=== PATIENT | female | born 1960 | race Hispanic/Latino ===

== ENCOUNTER 2018-04-08 18:04 | Inpatient (IN) | payer OTHER ==
[2018-04-08 19:23] LABS: Basophils % (Auto) 0.7 % (0.0-1.8); Eosinophils # (Auto) 0.1 K/mm3 (0.0-0.4); Eosinophils % (Auto) 1.2 % (0.0-4.3); Hematocrit 40.7 % (30.3-42.9); Lymphocytes # (Auto) 2.5 K/mm3 (1.2-5.4); Lymphocytes % (Auto) 41.7 % (13.4-35.0); Mean Corpuscular HGB Conc 34 % (30-34); Mean Corpuscular Hemoglobin 29 pg (28-32); Mean Corpuscular Volume 85 fl (79-97); Monocytes # (Auto) 0.5 K/mm3 (0.0-0.8); Monocytes % (Auto) 7.5 % (0.0-7.3); Platelet Count 397 K/mm3 (140-440); Red Blood Count 4.77 M/mm3 (3.65-5.03); Red Cell Distribution Width 14.9 % (13.2-15.2)
--- NOTE | 2018-04-08 19:35 | Emergency Department Report ---
HPI - General Chief Complaint: Altered Mental Status Time Seen by Provider: 04/08/18 19:06 - HPI HPI: Room 25 The patient is a 57-year-old female presenting with a chief complaint of altered mental status and chest pain. Family states the patient has been "in and out" of consciousness this afternoon not behaving like her normal self. Family states the patient started on a new medication for acid reflux 2017. Within the past week the patient has experienced numbness of her lips and fingers and feet of both sides. The patient contacted her physician wrote her for that acid reflux medication and his shortness Benadryl and the patient states she took 225 mg Benadryl's last night at approximately 21:00. Today with family since talked to the patient over the phone she is very difficult to understand. They called a second time patient never hung up. Family was sick to go check on the patient and they found the patient at that time "in and out" of consciousness. Patient complains of chest pain stating she feels as though she hasn't elephant sitting on her chest and it's been that way since January 2018. The patient admits to shortness of breath and some diaphoresis with her chest pain. The patient gets her chest pain score of 40/10. The patient states her last stress test occur "a long time ago" but she has never had a cardiac catheterization. Patient denies suicidal ideation when asked in confidence Location: Mental State, chest Duration: [See above] Quality: Altered, heaviness Severity: 40/10 Modifying factors: [see above] Context: [see above] Mode of transportation: [not driving] ED Past Medical Hx - Past Medical History Previous Medical History?: Yes Hx Hypertension: Yes Hx GERD: Yes Hx Asthma: Yes - Surgical History Past Surgical History?: Yes Hx Cholecystectomy: Yes Additional Surgical History: right knee surgery x 2, C section x 2, - Family History Family history: no significant - Social History Smoking Status: Former Smoker (none times over 10 years) Substance Use Type: None (denies illicit drug use) ED Review of Systems ROS: Stated complaint: AMS Other details as noted in HPI Constitutional: diaphoresis Respiratory: shortness of breath Cardiovascular: chest pain Gastrointestinal: denies: nausea, vomiting Neurological: other (altered mental status) Psychiatric: denies: suicidal thoughts Physical Exam - Physical Exam Vital Signs: Vital Signs 04/08/18 04/08/18 04/08/18 18:16 18:28 18:30 Temperature 98.6 F Pulse Rate 92 H 91 H Respiratory 16 16 Rate Blood Pressure 139/89 139/83 139/83 O2 Sat by Pulse 99 97 Oximetry 04/08/18 04/08/18 04/08/18 18:45 18:47 19:00 Temperature Pulse Rate 87 89 89 Respiratory 22 11 L Rate Blood Pressure 125/70 137/89 O2 Sat by Pulse 99 97 Oximetry Physical Exam: GENERAL: The patient is well-developed well-nourished female lying on stretcher not appearing to be in acute distress. [] HEENT: Normocephalic. Atraumatic. Extraocular motions are intact. Patient has moist mucous membranes. NECK: Supple. Trachea midline CHEST/LUNGS: Clear to auscultation. There is no respiratory distress noted. HEART/CARDIOVASCULAR: Regular. There is no tachycardia. There is no gallop rub or murmur. ABDOMEN: Abdomen is soft, nontender. Patient has normal bowel sounds. There is no abdominal distention. SKIN: There is no rash. There is no edema. There is no diaphoresis. NEURO: The patient is awake, alert, and oriented. The patient is cooperative. The patient has no focal neurologic deficits. The patient has normal speech. Cranial nerves II through XII grossly intact. Patient would not cooperate with exam to perform pronator drift. MUSCULOSKELETAL: There is no evidence of acute injury. ED Course Vital Signs 04/08/18 04/08/18 04/08/18 18:16 18:28 18:30 Temperature 98.6 F Pulse Rate 92 H 91 H Respiratory 16 16 Rate Blood Pressure 139/89 139/83 139/83 O2 Sat by Pulse 99 97 Oximetry 04/08/18 04/08/18 04/08/18 18:45 18:47 19:00 Temperature Pulse Rate 87 89 89 Respiratory 22 11 L Rate Blood Pressure 125/70 137/89 O2 Sat by Pulse 99 97 Oximetry ED Medical Decision Making - Lab Data Result diagrams: 04/08/18 19:03 04/08/18 19:03 Laboratory Tests 04/08/18 04/08/18 04/08/18 19:03 19:03 19:03 WBC 6.1 RBC 4.77 Hgb 14.0 Hct 40.7 MCV 85 MCH 29 MCHC 34 RDW 14.9 Plt Count 397 Lymph % (Auto) 41.7 H [place] % (Auto) 7.5 H Eos % (Auto) 1.2 Baso % (Auto) 0.7 Lymph # 2.5 [place] # 0.5 Eos # 0.1 Baso # 0.0 Seg Neutrophils % 48.9 Seg Neutrophils # 3.0 D-Dimer Sodium 132 L Potassium 4.1 Chloride 97.7 L Carbon Dioxide 24 Anion Gap 14 BUN 8 Creatinine 0.8 Estimated GFR > 60 BUN/Creatinine Ratio 10 Glucose 116 H POC Glucose Calcium 9.7 Total Bilirubin 0.40 AST 29 ALT 29 Alkaline Phosphatase 144 H Total Creatine Kinase CK-MB (CK-2) CK-MB (CK-2) Rel Index Troponin T Total Protein 7.8 Albumin 4.6 Albumin/Globulin Ratio 1.4 Salicylates Acetaminophen Plasma/Serum Alcohol < 0.01 04/08/18 04/08/18 04/08/18 19:06 19:09 19:09 WBC RBC Hgb Hct MCV MCH MCHC RDW Plt Count Lymph % (Auto) [place] % (Auto) Eos % (Auto) Baso % (Auto) Lymph # [place] # Eos # Baso # Seg Neutrophils % Seg Neutrophils # D-Dimer Sodium Potassium Chloride Carbon Dioxide Anion Gap BUN Creatinine Estimated GFR BUN/Creatinine Ratio Glucose POC Glucose 106 H Calcium Total Bilirubin AST ALT Alkaline Phosphatase Total Creatine Kinase CK-MB (CK-2) CK-MB (CK-2) Rel Index Troponin T Total Protein Albumin Albumin/Globulin Ratio Salicylates < 0.3 L Acetaminophen < 5.0 L Plasma/Serum Alcohol 04/08/18 04/08/18 19:33 19:33 WBC RBC Hgb Hct MCV MCH MCHC RDW Plt Count Lymph % (Auto) [place] % (Auto) Eos % (Auto) Baso % (Auto) Lymph # [place] # Eos # Baso # Seg Neutrophils % Seg Neutrophils # D-Dimer 135.00 Sodium Potassium Chloride Carbon Dioxide Anion Gap BUN Creatinine Estimated GFR BUN/Creatinine Ratio Glucose POC Glucose Calcium Total Bilirubin AST ALT Alkaline Phosphatase Total Creatine Kinase 111 CK-MB (CK-2) 1.1 CK-MB (CK-2) Rel Index 0.9 Troponin T < 0.010 Total Protein Albumin Albumin/Globulin Ratio Salicylates Acetaminophen Plasma/Serum Alcohol - EKG Data -: EKG Interpreted by [place] EKG shows normal: sinus rhythm Rate: normal - EKG Data When compared to previous EKG there are: previous EKG unavailable Interpretation: other (no ischemic changes seen) - Radiology Data Radiology results: report reviewed (CT head), image reviewed (CT head, chest x- ray) interpreted by me: Chest x-ray-no focal infiltrates, no pneumothorax CT head (read by radiologist)-old lacunar infarct right cerebellar hemisphere. No acute intracranial abnormalities are identified. - Differential Diagnosis ACS, AMS, pericarditis, GERD Critical care attestation.: If time is entered above; I have spent that time in minutes in the direct care of this critically ill patient, excluding procedure time. ED Disposition Clinical Impression: Chest pain, Altered mental status Disposition: DC-09 OP ADMIT IP TO THIS HOSP Is pt being admited?: Yes Does the pt Need Aspirin: Yes Condition: Fair Instructions: Chest Pain (ED) Time of Disposition: 22:57 (hospitalist notified)
[2018-04-08 19:42] LABS: Alanine Aminotransferase 29 units/L (7-56); Albumin 4.6 g/dL (3.9-5); BUN/Creatinine Ratio 10; Blood Urea Nitrogen 8 mg/dL (7-17); Calcium 9.7 mg/dL (8.4-10.2); Hemolysis Index 1
[2018-04-08 20:02] LABS: Creatine Kinase MB 1.1 ng/mL (0.0-4.0)
[2018-04-08] MEDS ORDERED: ASPIRIN PO ONE (23:25)
[2018-04-08] MEDS ORDERED: ZOFRAN IV PRN (23:40)
[2018-04-08] MEDS ORDERED: SODIUM CHLORIDE FLUSH SYRINGE 10 ML IV PRN (23:40)
--- NOTE | 2018-04-08 23:40 | History and Physical Report ---
History of Present Illness Date of examination: 04/08/18 History of present illness: 57-year-old woman with a history of hypertension, GERD, was brought to the emergency room by her friend for evaluation of altered mental status. The patient refused to talk. The friend stated that she complain of chest pain. She was started on a new medicine recently for reflux, she developed numbness of the fingers, toes and lips. She was instructed by her primary care physicians discontinuine the medication and start Benadryl or tender review of system is unobtainable PAST MEDICAL HISTORY:hypertension, MAY PAST SURGICAL HISTORY: Unknown SOCIAL HISTORY: Unknown FAMILY HISTORY: Unknown Medications and Allergies Allergies Allergy/AdvReac Type Severity Reaction Status Date / Time codeine Allergy Unknown Verified 04/08/18 18:54 morphine Allergy Unknown Verified 04/08/18 18:54 Penicillins Allergy Unknown Verified 04/08/18 18:54 Sulfa (Sulfonamide Allergy Unknown Verified 04/08/18 18:54 Antibiotics) Exam - Physical Exam Narrative exam: Gen. appearance: Patient lying in bed, no apparent distress HEENT: Normocephalic, atraumatic, pupils equally round and reactive to light, unable to assess extraocular movement. No JVD or thyromegaly or nodule,neck supple, no carotid bruit , unable to assess oral cavity Heart: S1, S2, regular rate and rhythm Lungs: Clear to auscultation bilaterally, breathing comfortable Abdomen: Positive bowel sounds, nontender, nondistended, no organomegaly Extremity: No edema, cyanosis, clubbing Skin: No rash, nodules, warm, dry Neuro: Unable to assess - Constitutional Vitals: Temp Pulse Resp BP Pulse Ox 98.6 F 99 H 10 L 123/85 95 04/08/18 18:28 04/08/18 21:30 04/08/18 21:30 04/08/18 21:30 04/08/18 21:30 Results - Labs CBC & Chem 7: 04/08/18 19:03 04/08/18 19:03 Labs: Abnormal lab results 04/08/18 04/08/18 04/08/18 Range/Units 19:03 19:03 19:06 Lymph % (Auto) 41.7 H (13.4-35.0) % [place] % (Auto) 7.5 H (0.0-7.3) % Sodium 132 L (137-145) mmol/L Chloride 97.7 L (98-107) mmol/L Glucose 116 H (65-100) mg/dL POC Glucose 106 H (70-105) Alkaline Phosphatase 144 H (35-129) units/L Salicylates (2.8-20.0) mg/dL Acetaminophen (10.0-30.0) ug/mL 04/08/18 04/08/18 Range/Units 19:09 19:09 Lymph % (Auto) (13.4-35.0) % [place] % (Auto) (0.0-7.3) % Sodium (137-145) mmol/L Chloride (98-107) mmol/L Glucose (65-100) mg/dL POC Glucose (70-105) Alkaline Phosphatase (35-129) units/L Salicylates < 0.3 L (2.8-20.0) mg/dL Acetaminophen < 5.0 L (10.0-30.0) ug/mL - Imaging and Cardiology EKG: image reviewed Chest x-ray: image reviewed CT Scan - head: report reviewed Assessment and Plan Assessment Encephalopathy, unclear etiology Chest pain Hypertension GERD Asthma Plan Admit to medicine Check cardiac enzymes Continue to monitor, obtain further history DVT prophylaxis
[2018-04-09 08:30] LABS: Basophils # (Auto) 0.1 K/mm3 (0.0-0.1); Basophils % (Auto) 0.8 % (0.0-1.8); Eosinophils # (Auto) 0.1 K/mm3 (0.0-0.4); Eosinophils % (Auto) 0.7 % (0.0-4.3); Hematocrit 42.8 % (30.3-42.9); Hemoglobin 14.1 gm/dl (10.1-14.3); Lymphocytes # (Auto) 3.5 K/mm3 (1.2-5.4); Lymphocytes % (Auto) 44.4 % (13.4-35.0); Mean Corpuscular HGB Conc 33 % (30-34); Mean Corpuscular Hemoglobin 29 pg (28-32); Mean Corpuscular Volume 89 fl (79-97); Monocytes # (Auto) 0.7 K/mm3 (0.0-0.8); Monocytes % (Auto) 9.2 % (0.0-7.3); Platelet Count 381 K/mm3 (140-440); Red Blood Count 4.83 M/mm3 (3.65-5.03); Red Cell Distribution Width 15.4 % (13.2-15.2)
[2018-04-09 08:57] LABS: BUN/Creatinine Ratio 14; Blood Urea Nitrogen 10 mg/dL (7-17); Calcium 9.6 mg/dL (8.4-10.2); Hemolysis Index 56
[2018-04-09 09:14] LABS: Creatine Kinase MB 1.1 ng/mL (0.0-4.0)
[2018-04-09] MEDS: SODIUM CHLORIDE FLUSH SYRINGE 10 ML IV SCH ×2 (10:52→21:18)
[2018-04-09] MEDS: LOVENOX SUB-Q SCH (11:15)
[2018-04-09] MEDS: TYLENOL PO PRN ×2 (11:28→23:19)
--- NOTE | 2018-04-09 11:43 | Progress Note ---
Assessment and Plan Assessment and plan: Chest pain. She will be scheduled for stress thallium in a.m. GERD. Protonix daily. Encephalopathy. Resolved. Etiology likely secondary to Benadryl. History Interval history: The patient initially refused to talk. However with painful stimuli and with persistence patient responded appropriately. Patient reports that she has had chest pain for the past 3 days. Patient attributes her chest pain to her GERD. Patient states that her pain is associated with her reflux. Patient denies any shortness of breath. No headache or visual disturbances. Per the ER record , patient reportedly took some Benadryl prior to admission. Hospitalist Physical - Constitutional Vitals: Temp Pulse Resp BP Pulse Ox 98 F 92 H 12 126/82 97 04/09/18 11:27 04/09/18 11:27 04/09/18 11:27 04/09/18 11:27 04/09/18 11:27 General appearance: Present: no acute distress, well-nourished - EENT Eyes: Present: PERRL, EOM intact ENT: hearing intact, clear oral mucosa, dentition normal - Neck Neck: Present: supple, normal ROM - Respiratory Respiratory effort: normal Respiratory: bilateral: CTA - Cardiovascular Rhythm: regular Heart Sounds: Present: S1 & S2. Absent: gallop, rub - Extremities Extremities: no ischemia, No edema, Full ROM - Abdominal General gastrointestinal: soft, non-tender, non-distended, normal bowel sounds - Integumentary Integumentary: Present: clear, warm, dry - Neurologic Neurologic: CNII-XII intact, moves all extremities Results - Labs CBC & Chem 7: 04/09/18 08:11 04/09/18 08:11 Labs: Laboratory Last Values WBC 7.9 K/mm3 (4.5-11.0) 04/09/18 08:11 RBC 4.83 M/mm3 (3.65-5.03) 04/09/18 08:11 Hgb 14.1 gm/dl (10.1-14.3) 04/09/18 08:11 Hct 42.8 % (30.3-42.9) 04/09/18 08:11 MCV 89 fl (79-97) 04/09/18 08:11 MCH 29 pg (28-32) 04/09/18 08:11 MCHC 33 % (30-34) 04/09/18 08:11 RDW 15.4 % (13.2-15.2) H 04/09/18 08:11 Plt Count 381 K/mm3 (140-440) 04/09/18 08:11 Lymph % (Auto) 44.4 % (13.4-35.0) H 04/09/18 08:11 [place] % (Auto) 9.2 % (0.0-7.3) H 04/09/18 08:11 Eos % (Auto) 0.7 % (0.0-4.3) 04/09/18 08:11 Baso % (Auto) 0.8 % (0.0-1.8) 04/09/18 08:11 Lymph # 3.5 K/mm3 (1.2-5.4) 04/09/18 08:11 [place] # 0.7 K/mm3 (0.0-0.8) 04/09/18 08:11 Eos # 0.1 K/mm3 (0.0-0.4) 04/09/18 08:11 Baso # 0.1 K/mm3 (0.0-0.1) 04/09/18 08:11 Seg Neutrophils % 44.9 % (40.0-70.0) 04/09/18 08:11 Seg Neutrophils # 3.5 K/mm3 (1.8-7.7) 04/09/18 08:11 D-Dimer 135.00 ng/mlDDU (0-234) 04/08/18 19:33 Sodium 138 mmol/L (137-145) 04/09/18 08:11 Potassium 4.5 mmol/L (3.6-5.0) 04/09/18 08:11 Chloride 100.4 mmol/L (98-107) 04/09/18 08:11 Carbon Dioxide 21 mmol/L (22-30) L 04/09/18 08:11 Anion Gap 21 mmol/L 04/09/18 08:11 BUN 10 mg/dL (7-17) 04/09/18 08:11 Creatinine 0.7 mg/dL (0.7-1.2) 04/09/18 08:11 Estimated GFR > 60 ml/min 04/09/18 08:11 BUN/Creatinine Ratio 14 % 04/09/18 08:11 Glucose 102 mg/dL (65-100) H 04/09/18 08:11 POC Glucose 106 (70-105) H 04/08/18 19:06 Calcium 9.6 mg/dL (8.4-10.2) 04/09/18 08:11 Total Bilirubin 0.40 mg/dL (0.1-1.2) 04/08/18 19:03 AST 29 units/L (5-40) 04/08/18 19:03 ALT 29 units/L (7-56) 04/08/18 19:03 Alkaline Phosphatase 144 units/L (35-129) H 04/08/18 19:03 Total Creatine Kinase 102 units/L (30-135) 04/09/18 08:11 CK-MB (CK-2) 1.1 ng/mL (0.0-4.0) 04/09/18 08:11 CK-MB (CK-2) Rel Index 1.0 (0-4) 04/09/18 08:11 Troponin T < 0.010 ng/mL (0.00-0.029) 04/09/18 08:11 Total Protein 7.8 g/dL (6.3-8.2) 04/08/18 19:03 Albumin 4.6 g/dL (3.9-5) 04/08/18 19:03 Albumin/Globulin Ratio 1.4 % 04/08/18 19:03 Salicylates < 0.3 mg/dL (2.8-20.0) L 04/08/18 19:09 Acetaminophen < 5.0 ug/mL (10.0-30.0) L 04/08/18 19:09 Plasma/Serum Alcohol < 0.01 % (0-0.07) 04/08/18 19:03
[2018-04-09] MEDS: PROTONIX IV SCH (21:18)
[2018-04-10] MEDS ORDERED: LEXISCAN IV ONE ×2 (08:18→08:28)
[2018-04-10] MEDS: TYLENOL PO PRN ×3 (08:20→21:27)
[2018-04-10] MEDS: LOVENOX SUB-Q SCH (10:26)
[2018-04-10] MEDS: PROTONIX IV SCH ×2 (10:27→21:27)
[2018-04-10] MEDS: SODIUM CHLORIDE FLUSH SYRINGE 10 ML IV SCH ×2 (10:27→21:27)
--- NOTE | 2018-04-10 12:16 | Progress Note ---
Assessment and Plan Assessment and plan: Chest pain. Follow-up stress thallium results. GERD. Protonix daily. GI consultation pending. Encephalopathy. Resolved. Etiology likely secondary to Benadryl. History Interval history: No new issues overnight. Patient complains of pain with swallowing. Hospitalist Physical - Constitutional Vitals: Temp Pulse Resp BP Pulse Ox 97.3 F L 90 24 118/78 98 04/10/18 08:28 04/10/18 08:28 04/10/18 08:28 04/10/18 08:28 04/10/18 08:28 General appearance: Present: no acute distress, well-nourished - EENT Eyes: Present: PERRL, EOM intact ENT: hearing intact, clear oral mucosa, dentition normal - Neck Neck: Present: supple, normal ROM - Respiratory Respiratory effort: normal Respiratory: bilateral: CTA - Cardiovascular Rhythm: regular Heart Sounds: Present: S1 & S2. Absent: gallop, rub - Extremities Extremities: no ischemia, No edema, Full ROM - Abdominal General gastrointestinal: soft, non-tender, non-distended, normal bowel sounds - Integumentary Integumentary: Present: clear, warm, dry - Neurologic Neurologic: CNII-XII intact, moves all extremities Results - Labs CBC & Chem 7: 04/09/18 08:11 04/09/18 08:11 Labs: Laboratory Last Values WBC 7.9 K/mm3 (4.5-11.0) 04/09/18 08:11 RBC 4.83 M/mm3 (3.65-5.03) 04/09/18 08:11 Hgb 14.1 gm/dl (10.1-14.3) 04/09/18 08:11 Hct 42.8 % (30.3-42.9) 04/09/18 08:11 MCV 89 fl (79-97) 04/09/18 08:11 MCH 29 pg (28-32) 04/09/18 08:11 MCHC 33 % (30-34) 04/09/18 08:11 RDW 15.4 % (13.2-15.2) H 04/09/18 08:11 Plt Count 381 K/mm3 (140-440) 04/09/18 08:11 Lymph % (Auto) 44.4 % (13.4-35.0) H 04/09/18 08:11 [place] % (Auto) 9.2 % (0.0-7.3) H 04/09/18 08:11 Eos % (Auto) 0.7 % (0.0-4.3) 04/09/18 08:11 Baso % (Auto) 0.8 % (0.0-1.8) 04/09/18 08:11 Lymph # 3.5 K/mm3 (1.2-5.4) 04/09/18 08:11 [place] # 0.7 K/mm3 (0.0-0.8) 04/09/18 08:11 Eos # 0.1 K/mm3 (0.0-0.4) 04/09/18 08:11 Baso # 0.1 K/mm3 (0.0-0.1) 04/09/18 08:11 Seg Neutrophils % 44.9 % (40.0-70.0) 04/09/18 08:11 Seg Neutrophils # 3.5 K/mm3 (1.8-7.7) 04/09/18 08:11 D-Dimer 135.00 ng/mlDDU (0-234) 04/08/18 19:33 Sodium 138 mmol/L (137-145) 04/09/18 08:11 Potassium 4.5 mmol/L (3.6-5.0) 04/09/18 08:11 Chloride 100.4 mmol/L (98-107) 04/09/18 08:11 Carbon Dioxide 21 mmol/L (22-30) L 04/09/18 08:11 Anion Gap 21 mmol/L 04/09/18 08:11 BUN 10 mg/dL (7-17) 04/09/18 08:11 Creatinine 0.7 mg/dL (0.7-1.2) 04/09/18 08:11 Estimated GFR > 60 ml/min 04/09/18 08:11 BUN/Creatinine Ratio 14 % 04/09/18 08:11 Glucose 102 mg/dL (65-100) H 04/09/18 08:11 POC Glucose 106 (70-105) H 04/08/18 19:06 Calcium 9.6 mg/dL (8.4-10.2) 04/09/18 08:11 Total Bilirubin 0.40 mg/dL (0.1-1.2) 04/08/18 19:03 AST 29 units/L (5-40) 04/08/18 19:03 ALT 29 units/L (7-56) 04/08/18 19:03 Alkaline Phosphatase 144 units/L (35-129) H 04/08/18 19:03 Total Creatine Kinase 102 units/L (30-135) 04/09/18 08:11 CK-MB (CK-2) 1.1 ng/mL (0.0-4.0) 04/09/18 08:11 CK-MB (CK-2) Rel Index 1.0 (0-4) 04/09/18 08:11 Troponin T < 0.010 ng/mL (0.00-0.029) 04/09/18 08:11 Total Protein 7.8 g/dL (6.3-8.2) 04/08/18 19:03 Albumin 4.6 g/dL (3.9-5) 04/08/18 19:03 Albumin/Globulin Ratio 1.4 % 04/08/18 19:03 Salicylates < 0.3 mg/dL (2.8-20.0) L 04/08/18 19:09 Acetaminophen < 5.0 ug/mL (10.0-30.0) L 04/08/18 19:09 Plasma/Serum Alcohol < 0.01 % (0-0.07) 04/08/18 19:03
[2018-04-10] MEDS ORDERED: PROAIR IH PRN (22:26)
[2018-04-10] MEDS ORDERED: PROVENTIL IH PRN (22:44)
[2018-04-10] MEDS: ELAVIL PO SCH (22:53)
[2018-04-10] MEDS: ZESTRIL PO SCH (22:53)
[2018-04-11] MEDS: TYLENOL PO PRN ×2 (03:57→22:16)
[2018-04-11 04:18] LABS: Amorphous Crystals,Urine Few; Bilirubin,Urine NEG (Negative); Blood,Urine NEG (Negative); Color,Urine Yellow (Yellow); Hyaline Casts,Urine 1 /LPF; Protein,Urine <15 mg/dL mg/dL (Negative); RBC,Urine < 1.0 /HPF (0.0-6.0); Urobilinogen,Urine < 2.0 mg/dL (<2.0)
[2018-04-11 04:27] LABS: Amphetamine Screen,Urine PRESUMPTIVE NEGATIVE; Benzodiazepines Screen,Urine PRESUMPTIVE NEGATIVE; Cannabinoid Screen,Urine PRESUMPTIVE NEGATIVE; Cocaine Screen,Urine PRESUMPTIVE NEGATIVE; Methadone Screen,Urine PRESUMPTIVE NEGATIVE; Opiate Screen,Urine PRESUMPTIVE NEGATIVE
[2018-04-11] MEDS: BROVANA NEBU IH SCH ×2 (08:10→20:02)
[2018-04-11] MEDS: PULMICORT IH SCH ×2 (08:10→20:02)
[2018-04-11] MEDS ORDERED: LEXISCAN IV ONE (08:16)
--- NOTE | 2018-04-11 09:10 | Gastroenterology Consultation ---
History of Present Illness - Reason for Consult Consult date: 04/11/18 GERD Requesting physician: WILMA LUJAN - History of Present Illness The patient is a 57 year old female for whom consultation was requested for GERD and suspected non cardiac chest pain. The reason for admission was an altered sensorium following a change in medication and possibly taking 2 Benadryls. She has long standing GERD, generally mild and not always on medication, which has flared in the past week. She has a long standing psychiatric disease, bipolar and severe PTSD and has been on a number of medications, which are apparently in the process of revision. Currently, she has no chest pain, but notes reflux is present. She is hesitant to eat, but has no dysphagia. The patient was visibly hyperventilating and anxious during the interview. Past History Past Medical History: GERD, hyperlipidemia, other (Bipolar disorder and PTSD) Past Surgical History: No surgical history Social history: smoking (quit a few years ago.), other (Lives in a longterm). denies: alcohol abuse, prescription drug abuse, IV drug use Family history: no significant family history Medications and Allergies Allergies Allergy/AdvReac Type Severity Reaction Status Date / Time codeine Allergy Unknown Verified 04/08/18 18:54 morphine Allergy Unknown Verified 04/08/18 18:54 Penicillins Allergy Unknown Verified 04/08/18 18:54 Sulfa (Sulfonamide Allergy Unknown Verified 04/08/18 18:54 Antibiotics) Home Medications Medication Instructions Recorded Confirmed Last Taken Type ALBUTEROL Inhaler [Proair] 2 puff IH QID PRN 04/09/18 04/09/18 04/07/18 History Advair 500-50 Diskus 2 mg INHALATION DAILY 04/09/18 04/09/18 04/07/18 History Amitriptyline [Elavil] 25 mg PO QHS 04/09/18 04/09/18 04/07/18 History Docusate Sodium [Colace] 100 mg PO BID 04/09/18 04/09/18 04/07/18 History Lisinopril [Zestril] 20 mg .ROUTE DAILY 04/09/18 04/09/18 04/07/18 History Lovastatin [Altoprev] 20 mg PO QPM 04/09/18 04/09/18 04/07/18 History Naproxen [EC-Naprosyn] 500 mg PO Q4-6H 04/09/18 04/09/18 04/07/18 History Active Meds: Active Medications Acetaminophen (Tylenol) 650 mg PO Q4H PRN PRN Reason: Pain MILD(1-3)/Fever >100.5/AVENDANO Last Admin: 04/11/18 03:57 Dose: 650 mg Albuterol (Proventil) 2.5 mg IH QIDRT PRN PRN Reason: Shortness Of Breath Amitriptyline HCl (Elavil) 25 mg PO QHS [facility] Last Admin: 04/10/18 22:53 Dose: 25 mg Arformoterol Tartrate (Brovana Nebu) 15 mcg IH Q12HRT [facility] Last Admin: 04/11/18 08:10 Dose: 15 mcg Budesonide (Pulmicort) 1 mg IH Q12HRT [facility] Last Admin: 04/11/18 08:10 Dose: 1 mg Docusate Sodium (Colace) 100 mg PO BID [facility] Enoxaparin Sodium (Lovenox) 40 mg SUB-Q QDAY [facility] Last Admin: 04/10/18 10:26 Dose: 40 mg Lisinopril (Zestril) 20 mg PO DAILY [facility] Last Admin: 04/10/18 22:53 Dose: 20 mg Ondansetron HCl (Zofran) 4 mg IV Q8H PRN PRN Reason: Nausea And Vomiting Last Admin: 04/10/18 03:58 Dose: 4 mg Pantoprazole Sodium (Protonix) 40 mg IV BID [facility] Last Admin: 04/10/18 21:27 Dose: 40 mg Pravastatin Sodium (Pravachol) 20 mg PO QHS [facility] Sodium Chloride (Sodium Chloride Flush Syringe 10 Ml) 10 ml IV PRN PRN PRN Reason: LINE FLUSH Sodium Chloride (Sodium Chloride Flush Syringe 10 Ml) 10 ml IV BID [facility] Last Admin: 04/10/18 21:27 Dose: 10 ml Review of Systems - Review of Systems Constitutional: no weight loss, no weight gain, no fever, no chills Eyes: no change in vision Ears, Nose, Throat: no decreased hearing, no difficulty swallowing, no epistaxis , no painful swallowing Breasts: deferred Cardiovascular: chest pain, shortness of breath Respiratory: shortness of breath, no wheezing Gastrointestinal: no abdominal pain, no nausea, no vomiting, no diarrhea, no constipation, no melena, no hematochezia Rectal: no pain Female Genitourinary: deferred Musculoskeletal: no gait dysfunction, no joint pain Integumentary: no rash, no pruritis Neurological: no head injury, no paralysis Psychiatric: anxiety, change in sleep habits, change in appetite, disorientation , depression Endocrine: no cold intolerance, no heat intolerance Hematologic/Lymphatic: no easy bruising, no easy bleeding Allergic/Immunologic: no wheezing Exam - Constitutional Vital Signs: Temp Pulse Resp BP Pulse Ox 97.9 F 82 20 108/76 99 04/11/18 07:42 04/11/18 08:20 04/11/18 08:20 04/11/18 07:42 04/11/18 08:10 General appearance: no acute distress, well-nourished, other (highly anxious and hyperventilating) - EENT Eyes: PERRL ENT: hearing intact, clear oral mucosa, poor dentition - Neck Neck: supple, normal ROM, no masses or JVD - Respiratory Respiratory effort: normal Respiratory: bilateral: CTA - Breasts Breasts: deferred - Cardiovascular Rhythm: regular Heart Sounds: Present: S1 & S2. Absent: gallop, rub Extremities: pulses intact, No edema, normal color, Full ROM - Gastrointestinal General gastrointestinal: Present: soft, non-tender, non-distended, normal bowel sounds. Absent: hepatomegaly, splenomegaly, mass Rectal Exam: deferred - Genitourinary Female Genitourinary: deferred - Integumentary Integumentary: Present: clear, warm, dry - Neurologic Neurological: alert and oriented x3, strength equal bilaterally - Psychiatric Psychiatric: no appropriate mood/affect, no intact judgment & insight, memory intact, cooperative - Labs CBC & Chem 7: 04/09/18 08:11 04/09/18 08:11 Lab Results: Laboratory Results - last 24 hr 04/11/18 04/11/18 04:00 04:00 Urine Color Yellow Urine Turbidity Clear Urine pH 5.0 Ur Specific [place] 1.009 Urine Protein <15 mg/dl Urine Glucose (UA) Neg Urine Ketones Neg Urine Blood Neg Urine Nitrite Neg Urine Bilirubin Neg Urine Urobilinogen < 2.0 Ur Leukocyte Esterase Neg Urine WBC (Auto) 2.0 Urine RBC (Auto) < 1.0 U Epithel Cells (Auto) < 1.0 Amorphous Crystals Few Hyaline Casts 1 Urine Opiates Screen Presumptive negative Urine Methadone Screen Presumptive negative Ur Barbiturates Screen Presumptive negative Ur Phencyclidine Scrn Presumptive negative Ur Amphetamines Screen Presumptive negative U Benzodiazepines Scrn Presumptive negative Urine Cocaine Screen Presumptive negative U Marijuana (THC) Screen Presumptive negative Drugs of Abuse Note Disclamer Assessment and Plan - Patient Problems (1) GERD (gastroesophageal reflux disease) Current Visit: Yes Status: Acute Plan to address problem: The patient has GERD and is on appropriate therapy, BID PPI regimen. Will plan EGD due to the severity of her complaints and reduced oral intake although this probably has a significant psychological overlay. (2) Altered mental status Current Visit: Yes Status: Acute (3) Chest pain Current Visit: Yes Status: Acute (4) Bipolar 1 disorder Current Visit: Yes Status: Acute Plan to address problem: Would consider psychiatric evaluation if feasible to assess her status which will make evaluating somatic complaints challenging. (5) Post traumatic stress disorder (PTSD) Current Visit: Yes Status: Acute
[2018-04-11] MEDS ORDERED: SALMETEROL INHALATION SCH (10:00)
[2018-04-11] MEDS ORDERED: FLUTICASONE PROPIONATE INHALATION SCH (10:00)
[2018-04-11] MEDS: COLACE PO SCH ×2 (10:34→22:07)
[2018-04-11] MEDS: PROTONIX IV SCH ×2 (10:35→22:08)
[2018-04-11] MEDS: SODIUM CHLORIDE FLUSH SYRINGE 10 ML IV SCH ×2 (10:35→22:08)
[2018-04-11] MEDS: LOVENOX SUB-Q SCH (10:35)
[2018-04-11] MEDS: ZESTRIL PO SCH (10:35)
--- NOTE | 2018-04-11 11:58 | Progress Note ---
Assessment and Plan Assessment and plan: Chest pain. Patient unable to perform stress thallium due to lack of cooperation and hiccups. I suspect this is noncardiac chest pain likely related to her GERD. Patient can have ischemic evaluation as an outpatient. GERD. Protonix daily. GI plans for EGD in a.m. Encephalopathy. Resolved. Etiology likely secondary to Benadryl. Patient also does have significant psychiatric history with bipolar disorder and PTSD. Bipolar disorder. Psych consultation. History Interval history: No new issues overnight. Patient complains of pain with swallowing. Hospitalist Physical - Constitutional Vitals: Temp Pulse Resp BP Pulse Ox 97.9 F 82 20 108/76 99 04/11/18 07:42 04/11/18 08:20 04/11/18 08:20 04/11/18 07:42 04/11/18 08:10 General appearance: Present: no acute distress, well-nourished - EENT Eyes: Present: PERRL, EOM intact ENT: hearing intact, clear oral mucosa, dentition normal - Neck Neck: Present: supple, normal ROM - Respiratory Respiratory effort: normal Respiratory: bilateral: CTA - Cardiovascular Rhythm: regular Heart Sounds: Present: S1 & S2. Absent: gallop, rub - Extremities Extremities: no ischemia, No edema, Full ROM - Abdominal General gastrointestinal: soft, non-tender, non-distended, normal bowel sounds - Integumentary Integumentary: Present: clear, warm, dry - Neurologic Neurologic: CNII-XII intact, moves all extremities Results - Labs CBC & Chem 7: 04/09/18 08:11 04/09/18 08:11 Labs: Laboratory Last Values WBC 7.9 K/mm3 (4.5-11.0) 04/09/18 08:11 RBC 4.83 M/mm3 (3.65-5.03) 04/09/18 08:11 Hgb 14.1 gm/dl (10.1-14.3) 04/09/18 08:11 Hct 42.8 % (30.3-42.9) 04/09/18 08:11 MCV 89 fl (79-97) 04/09/18 08:11 MCH 29 pg (28-32) 04/09/18 08:11 MCHC 33 % (30-34) 04/09/18 08:11 RDW 15.4 % (13.2-15.2) H 04/09/18 08:11 Plt Count 381 K/mm3 (140-440) 04/09/18 08:11 Lymph % (Auto) 44.4 % (13.4-35.0) H 04/09/18 08:11 [place] % (Auto) 9.2 % (0.0-7.3) H 04/09/18 08:11 Eos % (Auto) 0.7 % (0.0-4.3) 04/09/18 08:11 Baso % (Auto) 0.8 % (0.0-1.8) 04/09/18 08:11 Lymph # 3.5 K/mm3 (1.2-5.4) 04/09/18 08:11 [place] # 0.7 K/mm3 (0.0-0.8) 04/09/18 08:11 Eos # 0.1 K/mm3 (0.0-0.4) 04/09/18 08:11 Baso # 0.1 K/mm3 (0.0-0.1) 04/09/18 08:11 Seg Neutrophils % 44.9 % (40.0-70.0) 04/09/18 08:11 Seg Neutrophils # 3.5 K/mm3 (1.8-7.7) 04/09/18 08:11 D-Dimer 135.00 ng/mlDDU (0-234) 04/08/18 19:33 Sodium 138 mmol/L (137-145) 04/09/18 08:11 Potassium 4.5 mmol/L (3.6-5.0) 04/09/18 08:11 Chloride 100.4 mmol/L (98-107) 04/09/18 08:11 Carbon Dioxide 21 mmol/L (22-30) L 04/09/18 08:11 Anion Gap 21 mmol/L 04/09/18 08:11 BUN 10 mg/dL (7-17) 04/09/18 08:11 Creatinine 0.7 mg/dL (0.7-1.2) 04/09/18 08:11 Estimated GFR > 60 ml/min 04/09/18 08:11 BUN/Creatinine Ratio 14 % 04/09/18 08:11 Glucose 102 mg/dL (65-100) H 04/09/18 08:11 POC Glucose 106 (70-105) H 04/08/18 19:06 Calcium 9.6 mg/dL (8.4-10.2) 04/09/18 08:11 Total Bilirubin 0.40 mg/dL (0.1-1.2) 04/08/18 19:03 AST 29 units/L (5-40) 04/08/18 19:03 ALT 29 units/L (7-56) 04/08/18 19:03 Alkaline Phosphatase 144 units/L (35-129) H 04/08/18 19:03 Total Creatine Kinase 102 units/L (30-135) 04/09/18 08:11 CK-MB (CK-2) 1.1 ng/mL (0.0-4.0) 04/09/18 08:11 CK-MB (CK-2) Rel Index 1.0 (0-4) 04/09/18 08:11 Troponin T < 0.010 ng/mL (0.00-0.029) 04/09/18 08:11 Total Protein 7.8 g/dL (6.3-8.2) 04/08/18 19:03 Albumin 4.6 g/dL (3.9-5) 04/08/18 19:03 Albumin/Globulin Ratio 1.4 % 04/08/18 19:03 Urine Color Yellow (Yellow) 04/11/18 04:00 Urine Turbidity Clear (Clear) 04/11/18 04:00 Urine pH 5.0 (5.0-7.0) 04/11/18 04:00 Ur Specific [place] 1.009 (1.003-1.030) 04/11/18 04:00 Urine Protein <15 mg/dl mg/dL (Negative) 04/11/18 04:00 Urine Glucose (UA) Neg mg/dL (Negative) 04/11/18 04:00 Urine Ketones Neg mg/dL (Negative) 04/11/18 04:00 Urine Blood Neg (Negative) 04/11/18 04:00 Urine Nitrite Neg (Negative) 04/11/18 04:00 Urine Bilirubin Neg (Negative) 04/11/18 04:00 Urine Urobilinogen < 2.0 mg/dL (<2.0) 04/11/18 04:00 Ur Leukocyte Esterase Neg (Negative) 04/11/18 04:00 Urine WBC (Auto) 2.0 /HPF (0.0-6.0) 04/11/18 04:00 Urine RBC (Auto) < 1.0 /HPF (0.0-6.0) 04/11/18 04:00 U Epithel Cells (Auto) < 1.0 /HPF (0-13.0) 04/11/18 04:00 Amorphous Crystals Few 04/11/18 04:00 Hyaline Casts 1 /LPF 04/11/18 04:00 Salicylates < 0.3 mg/dL (2.8-20.0) L 04/08/18 19:09 Urine Opiates Screen Presumptive negative 04/11/18 04:00 Urine Methadone Screen Presumptive negative 04/11/18 04:00 Acetaminophen < 5.0 ug/mL (10.0-30.0) L 04/08/18 19:09 Ur Barbiturates Screen Presumptive negative 04/11/18 04:00 Ur Phencyclidine Scrn Presumptive negative 04/11/18 04:00 Ur Amphetamines Screen Presumptive negative 04/11/18 04:00 U Benzodiazepines Scrn Presumptive negative 04/11/18 04:00 Urine Cocaine Screen Presumptive negative 04/11/18 04:00 U Marijuana (THC) Screen Presumptive negative 04/11/18 04:00 Drugs of Abuse Note Disclamer 04/11/18 04:00 Plasma/Serum Alcohol < 0.01 % (0-0.07) 04/08/18 19:03
[2018-04-11] MEDS: PRAVACHOL PO SCH (22:07)
[2018-04-11] MEDS: ELAVIL PO SCH (22:07)
[2018-04-12] MEDS ORDERED: WATER FOR IRRIG STERILE IR ONE (07:28)
[2018-04-12] MEDS ORDERED: NACL 0.9% 1000 ML 1,000 ML IV SCH (08:00)
[2018-04-12] MEDS ORDERED: ZOFRAN ONE (08:56)
[2018-04-12] MEDS ORDERED: VERSED ONE (08:57)
[2018-04-12] MEDS ORDERED: DIPRIVAN 10 MG/ML IV ONE (08:57)
[2018-04-12] MEDS ORDERED: DECADRON ONE (08:57)
[2018-04-12] MEDS ORDERED: XYLOCAINE MPF 2% ONE (09:00)
--- NOTE | 2018-04-12 09:11 | Anesthesia Day of Surgery ---
Anesthesia Day of Surgery - Day of Surgery Patient Examined: Yes Patient H&P Reviewed: Yes Patient is NPO: Yes Beta Blockers: No
--- NOTE | 2018-04-12 09:12 | Anesthesia Consultation ---
Anesthesia Consult and Med Hx - Airway Anesthetic Teeth Evaluation: Poor ROM Head & Neck: Adequate Mental/Hyoid Distance: Adequate Mallampati Class: Class II Intubation Access Assessment: Probably Good - Pulmonary Exam CTA: Yes - Cardiac Exam Cardiac Exam: No Murmur - Pre-Operative Health Status ASA Pre-Surgery Classification: ASA3 Proposed Anesthetic Plan: MAC - Pulmonary Hx Smoking: No Hx Asthma: Yes Hx Respiratory Symptoms: No SOB: No COPD: Yes Home Oxygen Therapy: No Hx Pneumonia: No Hx Sleep Apnea: No - Cardiovascular System Hx Hypertension: Yes Hx Coronary Artery Disease: No Hx Heart Attack/AMI: No Hx Angina: No Hx Percutaneous Transluminal Coronary Angioplasty (PTCA): No Hx Cardia Arrhythmia: No Hx Pacemaker: No Hx Internal Defibrillator: No Hx Valvular Heart Disease: No Hx Heart Murmur: No Hx Peripheral Vascular Disease: No - Central Nervous System Hx Neuromuscular Disorder: No Hx Seizures: No CVA: No Hx Back Pain: No Hx Psychiatric Problems: Yes - Gastrointestinal Hx Ulcer: No Hx Gastroesophageal Reflux Disease: Yes - Endocrine Hx Renal Disease: No Hx End Stage Renal Disease: No Hx Cirrhosis: No Hx Liver Disease: No Hx Insulin Dependent Diabetes: No Hx Non-Insulin Dependent Diabetes: No Hx Thyroid Disease: No Hx Hypothyroidism: No Hx Hyperthyroidism: No - Hematic Hx Anemia: No Hx Sickle Cell Disease: No - Other Systems Hx Alcohol Use: No Hx Substance Use: No Hx Cancer: No Hx Obesity: No
--- NOTE | 2018-04-12 09:30 | Operative Report ---
Operative Report Operative Report: Date of procedure: 04/12/2018 Procedure: Esophagogastroduodenoscopy with biopsy for H. pylori. Preprocedure diagnosis: Severe heartburn. Post procedure diagnosis: Mild bile gastritis. Normal esophagus and duodenum. Endoscopist: Dr. Loving Anesthesia: Monitored anesthesia care per anesthesia department Medications: Propofol per anesthesia Estimated blood loss: [0] After careful discussion of the nature and purpose of the procedure as well as details the technique risks benefits and alternatives consent was obtained. The patient was placed in the left lateral decubitus position and medicated per anesthesia. The tip of the Solx EQ 570 video scope was passed per orum under direct vision into the esophagus and advanced into the stomach and descending duodenum. The descending duodenum the duodenal bulb and pylorus were symmetrical and normal. The scope was withdrawn into the stomach and the stomach then gently insufflated with air. The antrum revealed mild patchy erythema and some retained bile. Biopsies were taken for rapid H. pylori testing. The stomach was further insufflated and the scope was then retroflexed and partially withdrawn. The cardia, fundus, and body of the stomach were within normal limits and easily distensible.The scope was then withdrawn in the forward position. The esophagogastric junction was at 37 cm.. The esophageal body was normal throughout. The procedure was was well tolerated and the patient was observed in recovery. Impressions: Mild bile gastritis. Normal esophagus and duodenum. Plan: Continue PPI therapy for reflux. Advance diet as tolerated. Check path for H. pylori. I will sign off and follow up PRN. Electronically signed: Serafin Loving MD
--- NOTE | 2018-04-12 10:01 | Post Anesthesia Evaluation ---
- Post Anesthesia Evaluation Patient Participated: Yes Airway Patent: Yes Stable Respiratory Function: Yes Nausea/Vomiting: No Temp > 96.8F: Yes Pain Manageable: Yes Adequeate Hydration: Yes Anesthesia Complications: No
--- NOTE | 2018-04-12 10:28 | Progress Note ---
Assessment and Plan Assessment and plan: Chest pain. Patient unable to perform stress thallium due to lack of cooperation and hiccups on april 10. I suspect this is noncardiac chest pain likely related to her GERD. We will re-attempt stress test in am. She states her hiccups and reflux are better. Therefore, she believes she can tolerate/ lay flat for test now. If not, Patient can have ischemic evaluation as an outpatient. GERD. Protonix daily. EGD revealed mild bile gastritis. Encephalopathy. Resolved. Etiology likely secondary to Benadryl. Patient also does have significant psychiatric history with bipolar disorder and PTSD. Bipolar disorder. Psych consultation pending. History Interval history: No new issues overnight. Hospitalist Physical - Constitutional Vitals: Temp Pulse Resp BP Pulse Ox 97.7 F 74 20 93/63 100 04/12/18 09:22 04/12/18 09:52 04/12/18 09:52 04/12/18 09:52 04/12/18 09:52 General appearance: Present: no acute distress, well-nourished Results - Labs CBC & Chem 7: 04/09/18 08:11 04/09/18 08:11 Labs: Laboratory Last Values WBC 7.9 K/mm3 (4.5-11.0) 04/09/18 08:11 RBC 4.83 M/mm3 (3.65-5.03) 04/09/18 08:11 Hgb 14.1 gm/dl (10.1-14.3) 04/09/18 08:11 Hct 42.8 % (30.3-42.9) 04/09/18 08:11 MCV 89 fl (79-97) 04/09/18 08:11 MCH 29 pg (28-32) 04/09/18 08:11 MCHC 33 % (30-34) 04/09/18 08:11 RDW 15.4 % (13.2-15.2) H 04/09/18 08:11 Plt Count 381 K/mm3 (140-440) 04/09/18 08:11 Lymph % (Auto) 44.4 % (13.4-35.0) H 04/09/18 08:11 [place] % (Auto) 9.2 % (0.0-7.3) H 04/09/18 08:11 Eos % (Auto) 0.7 % (0.0-4.3) 04/09/18 08:11 Baso % (Auto) 0.8 % (0.0-1.8) 04/09/18 08:11 Lymph # 3.5 K/mm3 (1.2-5.4) 04/09/18 08:11 [place] # 0.7 K/mm3 (0.0-0.8) 04/09/18 08:11 Eos # 0.1 K/mm3 (0.0-0.4) 04/09/18 08:11 Baso # 0.1 K/mm3 (0.0-0.1) 04/09/18 08:11 Seg Neutrophils % 44.9 % (40.0-70.0) 04/09/18 08:11 Seg Neutrophils # 3.5 K/mm3 (1.8-7.7) 04/09/18 08:11 D-Dimer 135.00 ng/mlDDU (0-234) 04/08/18 19:33 Sodium 138 mmol/L (137-145) 04/09/18 08:11 Potassium 4.5 mmol/L (3.6-5.0) 04/09/18 08:11 Chloride 100.4 mmol/L (98-107) 04/09/18 08:11 Carbon Dioxide 21 mmol/L (22-30) L 04/09/18 08:11 Anion Gap 21 mmol/L 04/09/18 08:11 BUN 10 mg/dL (7-17) 04/09/18 08:11 Creatinine 0.7 mg/dL (0.7-1.2) 04/09/18 08:11 Estimated GFR > 60 ml/min 04/09/18 08:11 BUN/Creatinine Ratio 14 % 04/09/18 08:11 Glucose 102 mg/dL (65-100) H 04/09/18 08:11 POC Glucose 106 (70-105) H 04/08/18 19:06 Calcium 9.6 mg/dL (8.4-10.2) 04/09/18 08:11 Total Bilirubin 0.40 mg/dL (0.1-1.2) 04/08/18 19:03 AST 29 units/L (5-40) 04/08/18 19:03 ALT 29 units/L (7-56) 04/08/18 19:03 Alkaline Phosphatase 144 units/L (35-129) H 04/08/18 19:03 Total Creatine Kinase 102 units/L (30-135) 04/09/18 08:11 CK-MB (CK-2) 1.1 ng/mL (0.0-4.0) 04/09/18 08:11 CK-MB (CK-2) Rel Index 1.0 (0-4) 04/09/18 08:11 Troponin T < 0.010 ng/mL (0.00-0.029) 04/09/18 08:11 Total Protein 7.8 g/dL (6.3-8.2) 04/08/18 19:03 Albumin 4.6 g/dL (3.9-5) 04/08/18 19:03 Albumin/Globulin Ratio 1.4 % 04/08/18 19:03 Urine Color Yellow (Yellow) 04/11/18 04:00 Urine Turbidity Clear (Clear) 04/11/18 04:00 Urine pH 5.0 (5.0-7.0) 04/11/18 04:00 Ur Specific [place] 1.009 (1.003-1.030) 04/11/18 04:00 Urine Protein <15 mg/dl mg/dL (Negative) 04/11/18 04:00 Urine Glucose (UA) Neg mg/dL (Negative) 04/11/18 04:00 Urine Ketones Neg mg/dL (Negative) 04/11/18 04:00 Urine Blood Neg (Negative) 04/11/18 04:00 Urine Nitrite Neg (Negative) 04/11/18 04:00 Urine Bilirubin Neg (Negative) 04/11/18 04:00 Urine Urobilinogen < 2.0 mg/dL (<2.0) 04/11/18 04:00 Ur Leukocyte Esterase Neg (Negative) 04/11/18 04:00 Urine WBC (Auto) 2.0 /HPF (0.0-6.0) 04/11/18 04:00 Urine RBC (Auto) < 1.0 /HPF (0.0-6.0) 04/11/18 04:00 U Epithel Cells (Auto) < 1.0 /HPF (0-13.0) 04/11/18 04:00 Amorphous Crystals Few 04/11/18 04:00 Hyaline Casts 1 /LPF 04/11/18 04:00 Salicylates < 0.3 mg/dL (2.8-20.0) L 04/08/18 19:09 Urine Opiates Screen Presumptive negative 04/11/18 04:00 Urine Methadone Screen Presumptive negative 04/11/18 04:00 Acetaminophen < 5.0 ug/mL (10.0-30.0) L 04/08/18 19:09 Ur Barbiturates Screen Presumptive negative 04/11/18 04:00 Ur Phencyclidine Scrn Presumptive negative 04/11/18 04:00 Ur Amphetamines Screen Presumptive negative 04/11/18 04:00 U Benzodiazepines Scrn Presumptive negative 04/11/18 04:00 Urine Cocaine Screen Presumptive negative 04/11/18 04:00 U Marijuana (THC) Screen Presumptive negative 04/11/18 04:00 Drugs of Abuse Note Disclamer 04/11/18 04:00 Plasma/Serum Alcohol < 0.01 % (0-0.07) 04/08/18 19:03
[2018-04-12] MEDS: BROVANA NEBU IH SCH ×2 (12:32→20:42)
[2018-04-12] MEDS: PULMICORT IH SCH ×2 (12:32→20:42)
[2018-04-12] MEDS: PROTONIX IV SCH ×2 (13:03→21:21)
[2018-04-12] MEDS: LOVENOX SUB-Q SCH (13:03)
[2018-04-12] MEDS: ZESTRIL PO SCH (13:04)
[2018-04-12] MEDS: COLACE PO SCH ×2 (13:04→21:21)
--- NOTE | 2018-04-12 14:18 | Cat Scan Report ---
FINAL REPORT PROCEDURE: CT HEAD/BRAIN WO CON TECHNIQUE: Computerized tomography of the head was performed without contrast material. HISTORY: altered mental status COMPARISON: No prior studies are available for comparison. FINDINGS: Brain: Brain density appears normal. No evidence of intracranial hemorrhage. No parenchymal hemorrhage, mass lesions or mass effect are seen. No abnormal extraxial fluid collects or masses are seen. There is a well-defined small area of decreased density posterior aspect right cerebellar hemisphere which appears represent an old mature lacunar infarct. Ventricles: Ventricles are normal size and are midline. Bone Windows: No evidence of skull fracture. Paranasal sinuses: Visualized portions are clear. Mastoid air cells: Visualized portions are clear. IMPRESSION: Old lacunar infarct right cerebellar hemisphere. No acute intracranial abnormalities are identified.
--- NOTE | 2018-04-12 14:22 | XRay Report ---
FINAL REPORT PROCEDURE: XR CHEST 1V AP TECHNIQUE: Chest radiograph anteroposterior view. CPT 90511 HISTORY: chest pain COMPARISON: No prior studies are available for comparison. FINDINGS: Lungs are hypoventilated. Right diaphragm is elevated more than the left. There appears to be minimal basilar atelectasis. Lungs otherwise are clear. Heart size and pulmonary vasculature appear normal. No evidence of pulmonary edema or pleural effusion. No acute bony abnormalities are seen. Surgical clips visualize right upper quadrant. IMPRESSION: Elevated right diaphragm of indeterminate chronicity. There are no old studies for comparison. No other abnormalities are identified..
[2018-04-12] MEDS: SODIUM CHLORIDE FLUSH SYRINGE 10 ML IV SCH ×2 (18:03→21:21)
[2018-04-12] MEDS: PRAVACHOL PO SCH (21:21)
[2018-04-12] MEDS: TYLENOL PO PRN (21:21)
[2018-04-12] MEDS: ELAVIL PO SCH (21:22)
[2018-04-13] MEDS: TYLENOL PO PRN ×3 (05:30→21:23)
[2018-04-13] MEDS: BROVANA NEBU IH SCH ×2 (07:41→20:32)
[2018-04-13] MEDS: PULMICORT IH SCH ×2 (07:42→20:32)
[2018-04-13] MEDS: PROTONIX IV SCH ×2 (09:51→21:23)
[2018-04-13] MEDS: LOVENOX SUB-Q SCH (09:51)
[2018-04-13] MEDS: COLACE PO SCH ×2 (09:51→21:24)
[2018-04-13] MEDS: SODIUM CHLORIDE FLUSH SYRINGE 10 ML IV SCH ×2 (09:52→21:24)
[2018-04-13] MEDS: ZESTRIL PO SCH (11:24)
--- NOTE | 2018-04-13 12:57 | Progress Note ---
Assessment and Plan Assessment and plan: Chest pain. Stress test not yet done because patient have difficulty lying flat. Will try again tomorrow. She states her hiccups and reflux are better. Therefore, she believes she can tolerate/lay flat for test now. GERD. Protonix daily. EGD revealed mild bile gastritis. Encephalopathy. Resolved. Etiology likely secondary to Benadryl. Patient also does have significant psychiatric history with bipolar disorder and PTSD. Bipolar disorder. Psych following, Full code status Hopefully dc home tomorrow History Interval history: Chest pain No shortness of breath currently Hospitalist Physical - Physical exam Narrative exam: General: Not in acute distress, Obese HEENT:Normocephalic, atraumatic Neck:supple,no JVD Lungs: Clear to auscultation bilaterally, no crackles, no wheeze Heart:S1 and S2 regular, no murmurs, rubs or gallop Abd: soft, non tender, non distended, normal bowel sounds Ext: No edema, no clubbing, no cyanosis Neuro: AAO x 3, moves all extremities. - Constitutional Vitals: Temp Pulse Resp BP Pulse Ox 98.2 F 86 18 102/57 98 04/13/18 11:57 04/13/18 11:57 04/13/18 11:57 04/13/18 11:57 04/13/18 11:57 General appearance: Present: no acute distress, obese Results - Labs CBC & Chem 7: 04/09/18 08:11 04/09/18 08:11 Labs: Laboratory Last Values WBC 7.9 K/mm3 (4.5-11.0) 04/09/18 08:11 RBC 4.83 M/mm3 (3.65-5.03) 04/09/18 08:11 Hgb 14.1 gm/dl (10.1-14.3) 04/09/18 08:11 Hct 42.8 % (30.3-42.9) 04/09/18 08:11 MCV 89 fl (79-97) 04/09/18 08:11 MCH 29 pg (28-32) 04/09/18 08:11 MCHC 33 % (30-34) 04/09/18 08:11 RDW 15.4 % (13.2-15.2) H 04/09/18 08:11 Plt Count 381 K/mm3 (140-440) 04/09/18 08:11 Lymph % (Auto) 44.4 % (13.4-35.0) H 04/09/18 08:11 [place] % (Auto) 9.2 % (0.0-7.3) H 04/09/18 08:11 Eos % (Auto) 0.7 % (0.0-4.3) 04/09/18 08:11 Baso % (Auto) 0.8 % (0.0-1.8) 04/09/18 08:11 Lymph # 3.5 K/mm3 (1.2-5.4) 04/09/18 08:11 [place] # 0.7 K/mm3 (0.0-0.8) 04/09/18 08:11 Eos # 0.1 K/mm3 (0.0-0.4) 04/09/18 08:11 Baso # 0.1 K/mm3 (0.0-0.1) 04/09/18 08:11 Seg Neutrophils % 44.9 % (40.0-70.0) 04/09/18 08:11 Seg Neutrophils # 3.5 K/mm3 (1.8-7.7) 04/09/18 08:11 D-Dimer 135.00 ng/mlDDU (0-234) 04/08/18 19:33 Sodium 138 mmol/L (137-145) 04/09/18 08:11 Potassium 4.5 mmol/L (3.6-5.0) 04/09/18 08:11 Chloride 100.4 mmol/L (98-107) 04/09/18 08:11 Carbon Dioxide 21 mmol/L (22-30) L 04/09/18 08:11 Anion Gap 21 mmol/L 04/09/18 08:11 BUN 10 mg/dL (7-17) 04/09/18 08:11 Creatinine 0.7 mg/dL (0.7-1.2) 04/09/18 08:11 Estimated GFR > 60 ml/min 04/09/18 08:11 BUN/Creatinine Ratio 14 % 04/09/18 08:11 Glucose 102 mg/dL (65-100) H 04/09/18 08:11 POC Glucose 94 (70-105) 04/12/18 08:28 Calcium 9.6 mg/dL (8.4-10.2) 04/09/18 08:11 Total Bilirubin 0.40 mg/dL (0.1-1.2) 04/08/18 19:03 AST 29 units/L (5-40) 04/08/18 19:03 ALT 29 units/L (7-56) 04/08/18 19:03 Alkaline Phosphatase 144 units/L (35-129) H 04/08/18 19:03 Total Creatine Kinase 102 units/L (30-135) 04/09/18 08:11 CK-MB (CK-2) 1.1 ng/mL (0.0-4.0) 04/09/18 08:11 CK-MB (CK-2) Rel Index 1.0 (0-4) 04/09/18 08:11 Troponin T < 0.010 ng/mL (0.00-0.029) 04/09/18 08:11 Total Protein 7.8 g/dL (6.3-8.2) 04/08/18 19:03 Albumin 4.6 g/dL (3.9-5) 04/08/18 19:03 Albumin/Globulin Ratio 1.4 % 04/08/18 19:03 Urine Color Yellow (Yellow) 04/11/18 04:00 Urine Turbidity Clear (Clear) 04/11/18 04:00 Urine pH 5.0 (5.0-7.0) 04/11/18 04:00 Ur Specific [place] 1.009 (1.003-1.030) 04/11/18 04:00 Urine Protein <15 mg/dl mg/dL (Negative) 04/11/18 04:00 Urine Glucose (UA) Neg mg/dL (Negative) 04/11/18 04:00 Urine Ketones Neg mg/dL (Negative) 04/11/18 04:00 Urine Blood Neg (Negative) 04/11/18 04:00 Urine Nitrite Neg (Negative) 04/11/18 04:00 Urine Bilirubin Neg (Negative) 04/11/18 04:00 Urine Urobilinogen < 2.0 mg/dL (<2.0) 04/11/18 04:00 Ur Leukocyte Esterase Neg (Negative) 04/11/18 04:00 Urine WBC (Auto) 2.0 /HPF (0.0-6.0) 04/11/18 04:00 Urine RBC (Auto) < 1.0 /HPF (0.0-6.0) 04/11/18 04:00 U Epithel Cells (Auto) < 1.0 /HPF (0-13.0) 04/11/18 04:00 Amorphous Crystals Few 04/11/18 04:00 Hyaline Casts 1 /LPF 04/11/18 04:00 Salicylates < 0.3 mg/dL (2.8-20.0) L 04/08/18 19:09 Urine Opiates Screen Presumptive negative 04/11/18 04:00 Urine Methadone Screen Presumptive negative 04/11/18 04:00 Acetaminophen < 5.0 ug/mL (10.0-30.0) L 04/08/18 19:09 Ur Barbiturates Screen Presumptive negative 04/11/18 04:00 Ur Phencyclidine Scrn Presumptive negative 04/11/18 04:00 Ur Amphetamines Screen Presumptive negative 04/11/18 04:00 U Benzodiazepines Scrn Presumptive negative 04/11/18 04:00 Urine Cocaine Screen Presumptive negative 04/11/18 04:00 U Marijuana (THC) Screen Presumptive negative 04/11/18 04:00 Drugs of Abuse Note Disclamer 04/11/18 04:00 Plasma/Serum Alcohol < 0.01 % (0-0.07) 04/08/18 19:03
[2018-04-13] MEDS: PRAVACHOL PO SCH (21:24)
[2018-04-13] MEDS: ELAVIL PO SCH (21:24)
[2018-04-14] MEDS: PULMICORT IH SCH (07:39)
[2018-04-14] MEDS: BROVANA NEBU IH SCH (07:39)
[2018-04-14] MEDS ORDERED: LEXISCAN IV ONE ×2 (09:19→09:22)
--- NOTE | 2018-04-14 11:38 | Discharge Summary ---
Providers - Providers Date of Admission: 04/08/18 23:40 Date of discharge: 04/14/18 Attending physician: TAYLOR VELEZ 04/10/18 12:16 Consult to Physician [CONS] Routine Comment: Consulting Provider: KENTON VARGAS Physician Instructions: Reason For Exam: gerd 04/11/18 11:58 Consult to Mental Health [CONS] Routine Reason For Exam: bipolar d/o Place consult to:: Dr. Damico Notified:: Fawn [facility]U Phone number called:: Ext. [phone] Was contact made?: Yes If yes, spoke with:: [facility] Time called:: 12:25 Primary care physician: INDUSTRIAL MACHINE OPERATOR Hospitalization Condition: Fair Disposition: DC/[place]-06 HOME UNDER HOME [facility] Core Measure Documentation - Palliative Care Palliative Care/ Comfort Measures: Not Applicable - Core Measures Any of the following diagnoses?: none Exam - Constitutional Vitals: Temp Pulse Resp BP Pulse Ox 98.3 F 82 16 107/62 97 04/14/18 07:57 04/14/18 07:57 04/14/18 07:57 04/14/18 07:57 04/14/18 07:57 Plan Activity: advance as tolerated Diet: low fat, low cholesterol, low salt Special Instructions: home health RN Additional Instructions: 1.Follow up with PCP or [facility] in 1 week. 2.Follow up with Mental health in 1 week. 3.Home health Follow up with: PRIMARY CARE, [Primary Care Provider] - 7 Days Prescriptions: Famotidine [Pepcid] 20 mg PO BID #60 tablet
[2018-04-14] MEDS: COLACE PO SCH (11:41)
[2018-04-14] MEDS: LOVENOX SUB-Q SCH (11:42)
[2018-04-14] MEDS: PROTONIX IV SCH (11:42)
[2018-04-14] MEDS: ZESTRIL PO SCH (11:42)
--- NOTE | 2018-04-14 15:15 | Treadmill Report ---
NUCLEAR PERFUSION SCAN REFERRING PHYSICIAN: Marc Guzman MD PROTOCOL: The patient was brought to the stress lab in postoperative state, given 10 mCi of technetium 99m at rest. The patient underwent rest imaging. The patient underwent Lexiscan stress test per standard protocol. At peak stress, the patient was given 26 mCi of technetium 99m. Shortly thereafter, the patient underwent stress imaging. Raw imaging reveals mild GI artifact, no significant motion artifact. SPECT images examined carefully in horizontal long axis, vertical long axis, short axis views. There is normal homogenous uptake of radioisotope in all reported segments. No evidence of a significant fixed or reversible perfusion defects suggestive of prior infarction or ischemia. Gated wall motion reveals normal systolic thickening, calculated ejection fraction of 74%. CONCLUSIONS: 1. Technically difficult study, but grossly probably normal without evidence of significant degree of prior infarction or ischemia. 2. Normal left ventricular systolic performance without evidence of transient ischemic dilatation or stress-induced segmental wall motion abnormalities. JOB# [id number] AJIT/[place]
[2018-04-14 17:08] VITALS: BP 118/65
[2018-04-14] MEDS ORDERED: PROTONIX PO SCH (22:00)
== END 2018-04-14 19:00 | disposition home health service (06) | DRG 391 ==
LOC: ED 18:04 → 4A 23:40 → UNDODISIN 04-12 12:44
PROVIDERS: ADMIT Internal Medicine; ATTEND Internal Medicine
PROC: 0DB78ZX Excision of Stomach, Pylorus, Via Natural or Artificial Opening Endoscopic, Diagnostic (ICD-10-PCS; principal; 2018-04-12)
DX: K21.9 Gastro-esophageal reflux disease without esophagitis (principal); G92 Toxic encephalopathy; Z88.6 Allergy status to analgesic agent; Z88.0 Allergy status to penicillin; Z88.2 Allergy status to sulfonamides; I10 Essential (primary) hypertension; J45.909 Unspecified asthma, uncomplicated; Z90.49 Acquired absence of other specified parts of digestive tract; Z87.891 Personal history of nicotine dependence; F31.9 Bipolar disorder, unspecified; F43.10 Post-traumatic stress disorder, unspecified; J44.9 Chronic obstructive pulmonary disease, unspecified; K29.70 Gastritis, unspecified, without bleeding; T45.0X5A Adverse effect of antiallergic and antiemetic drugs, initial encounter; Y92.89 Other specified places as the place of occurrence of the external cause
CPT/HCPCS: 36415; 70450; 71045; 78452; 80048; 80053; 80307; 80320; 81001; 82550; 82553; 82962; 84484; 85025; 85379; 88305; 88342; 93005; 93010; 93017; 94640; 99285; A9270-GY; A9502; C9113; G0480; J1100; J1650; J2250; J2405; J2704; J2785; J7030